=== PATIENT | male | born 1975 | race Caucasian/White ===

== ENCOUNTER → 2016-10-17 | Outpatient (CLI) | payer BC ==
[2016-10-17 10:29] LABS: CHLORIDE,CL 105 mmol/L (98-110); SODIUM,NA 142 mmol/L (136-146)
== END ==
LOC: MW.CHFP 09:17
PROVIDERS: ATTEND Student in an Organized Health Care Education/Training Program
DX: E78.00 Pure hypercholesterolemia, unspecified (principal); E78.1 Pure hyperglyceridemia; N52.9 Male erectile dysfunction, unspecified
CPT/HCPCS: 36415; 80053; 80061; 84402; 84403

== ENCOUNTER 2019-02-07 16:03 | Observation (INO) | payer BC ==
[2019-02-07] MEDS ORDERED: Acetaminophen 325 MG Tab PO PRN (16:13)
[2019-02-07] MEDS ORDERED: Acetaminophen/HYDROcodone 325-5 MG Tab PO PRN (16:13)
[2019-02-07] MEDS ORDERED: Sodium Chloride 0.9% 10 ML SDV IV PRN (16:13)
[2019-02-07] MEDS ORDERED: Sodium Chloride 0.9% 10 ML Syringe FLUSH PRN (16:13)
[2019-02-07] MEDS ORDERED: Ondansetron 4 MG/2 ML SDV IVPUSH PRN (16:13)
[2019-02-07] MEDS ORDERED: Ondansetron 4 MG Tab.DIS PO PRN (16:13)
[2019-02-07] MEDS ORDERED: Sodium Chloride 0.9% 2.5 ML Syringe FLUSH PRN (16:13)
[2019-02-07] MEDS ORDERED: Ibuprofen 800 MG Tab PO PRN (16:13)
[2019-02-07] MEDS ORDERED: Morphine 2 MG/ML Syringe IVPUSH PRN (16:13)
[2019-02-07] MEDS ORDERED: Albuterol 8 GM Inhaler INH PRN (16:16)
--- NOTE | 2019-02-07 16:20 | PCM.HP ---
H&P History of Present Illness - General Date of Service: 02/07/19 Admit Problem/Dx: Admission Diagnosis/Problem Admission Diagnosis/Problem Cellulitis - History of Present Illness Initial Comments - Free Text/Narative: 43 y/o male who was directly admitted from his PCP's clinic for right lower leg cellulitis. Patient states that he had cellulitis in the same area a few months ago and that resolved, however, this time it started on his ankle area and has spread to his entire foot and up his right ashraf area. Tender to palpation. No fevers. No trauma to leg. Has been taking clindamycin and doxycycline for acne. Had not seen a provider to his cellulitis until today. No nausea or vomiting. denies any rashes anywhere else on body. No known antibiotic allergies. [place] in town and likes to play video games. No smoking. Occasional alcohol. - Related Data Allergies/Adverse Reactions: Allergies Allergy/AdvReac Type Severity Reaction Status Date / Time cat dander Allergy Itching Verified 02/07/19 16:50 Home Medications: Home Meds Albuterol [Proair HFA] 2 puff INH Q4HR PRN 02/07/15 [History] Fluticasone/Salmeterol [Advair 250-50 Diskus] 1 puff INH BID PRN 02/07/15 [ History] Meloxicam [Mobic] 15 mg PO DAILY 02/07/15 [History] Simvastatin [Zocor] 10 mg PO BEDTIME 02/07/15 [History] Divalproex Sodium [Depakote] 1,500 mg PO DAILY 09/12/16 [History] Clindamycin Phosphate [Cleocin] 02/07/19 [History] Lisdexamfetamine Dimesylate [Vyvanse] 70 mg PO DAILY 02/07/19 [History] Past Medical History Cardiovascular History: Reports: High Cholesterol Respiratory History: Reports: Asthma Other Gastrointestinal History: inguinal hernia bilateral Other Musculoskeletal History: bulging discs Psychiatric History: Reports: ADHD, Bipolar Dermatologic History: Reports: Other (See Below) Other Dermatologic History: adult acne - Past Surgical History Other HEENT Surgeries/Procedures: eye surgery as a child Other Respiratory Surgeries/Procedures: chest tubes in past Social & Family History - Family History Family Medical History: Noncontributory - Caffeine Use Caffeine Use: Reports: Energy Drinks H&P Review of Systems - Review of Systems: Review Of Systems: ROS reveals no pertinent complaints other than HPI. Exam - Exam Exam: See Below - Exam General: Alert, Oriented, Cooperative Lungs: Clear to Auscultation, Normal Respiratory Effort. No: Crackles, Wheezing Cardiovascular: Regular Rate, Regular Rhythm GI/Abdominal Exam: Normal Bowel Sounds, Soft, Non-Tender, No Distention Extremities: Other (right lower leg cellulitis extending from right ashraf area to right foot. Foot is swollen and tender. No open ulcers.) Skin: Warm, Dry - Patient Data Result Diagrams: 02/07/19 16:30 02/07/19 16:30 Problem List Initiated/Reviewed/Updated: Yes Orders Last 24hrs: Active Orders 24 hr Category Date Time Status Patient Status [ADT] Routine ADT 02/07/19 16:14 Active Oxygen Therapy [RC] PRN Care 02/07/19 16:14 Active Up ad Fouzia [RC] ASDIRECTED Care 02/07/19 16:13 Active VTE/DVT Education [RC] PER UNIT ROUTINE Care 02/07/19 16:14 Active Vital Signs [RC] Q4H Care 02/07/19 16:14 Active Regular Diet [DIET] Diet 02/07/19 Breakfast Active CBC WITH AUTO DIFF [HEME] Urgent Lab 02/07/19 16:19 Ordered COMPREHENSIVE METABOLIC PN,CMP [CHEM] Urgent Lab 02/07/19 16:19 Ordered Acetaminophen [Tylenol] Med 02/07/19 16:13 Ordered 650 mg PO Q4H PRN Acetaminophen/HYDROcodone [[place] 325-5 MG] Med 02/07/19 16:13 Ordered 1 tab PO Q4H PRN Albuterol [Proventil HFA] Med 02/07/19 16:16 Ordered DOSE gm INH Q4HR PRN Divalproex Sodium [Depakote] Med 02/07/19 22:00 Ordered 1,500 mg PO TID Enoxaparin [Lovenox] Med 02/07/19 16:15 Ordered 40 mg SUBCUT Q24H Fluticasone/Salmeterol [Advair Diskus 250-50] Med 02/07/19 21:00 Ordered 1 puff INH BID Ibuprofen [Motrin] Med 02/07/19 16:13 Ordered 800 mg PO Q6H PRN Morphine Med 02/07/19 16:13 Ordered 2 mg IVPUSH Q2H PRN Ondansetron [Zofran ODT] Med 02/07/19 16:13 Ordered 4 mg PO Q4H PRN Ondansetron [Zofran] Med 02/07/19 16:13 Ordered 4 mg IVPUSH Q4H PRN Pharmacy to Dose - Vancomycin Med 02/07/19 16:30 Ordered 1 dose .XX ASDIRECTED Sodium Chloride 0.9% [Normal Saline] Med 02/07/19 16:13 Ordered 10 ml IV ASDIRECTED PRN Sodium Chloride 0.9% [Saline Flush] Med 02/07/19 16:13 Ordered 10 ml FLUSH ASDIRECTED PRN Sodium Chloride 0.9% [Saline Flush] Med 02/07/19 16:13 Ordered 2.5 ml FLUSH ASDIRECTED PRN Vancomycin 1.25 gm Med 02/07/19 16:30 Ordered Sodium Chloride 0.9% [Normal Saline] 250 ml IV Q12H Peripheral IV Insertion Adult [OM.PC] Routine Oth 02/07/19 16:13 Ordered Saline Lock Insert [OM.PC] Routine Oth 02/07/19 16:13 Ordered Resuscitation Status Routine Resus Stat 02/07/19 16:13 Ordered Medication Orders Acetaminophen (Tylenol) 650 mg PO Q4H PRN PRN Reason: Pain (Mild 1-3)/fever Hydrocodone Bitart/Acetaminophen ([place] 325-5 Mg) 1 tab PO Q4H PRN PRN Reason: Pain (moderate 4-6) Albuterol (Proventil Hfa) gm INH Q4HR PRN PRN Reason: Shortness of Breath Divalproex Sodium (Depakote) 1,500 mg PO TID [facility] Enoxaparin Sodium (Lovenox) 40 mg SUBCUT Q24H [facility] Vancomycin HCl 1.25 gm/ Sodium (Chloride) 250 mls @ 167 mls/hr IV Q12H [facility] Ibuprofen (Motrin) 800 mg PO Q6H PRN PRN Reason: Pain (mild 1-3) Morphine Sulfate (Morphine) 2 mg IVPUSH Q2H PRN PRN Reason: Pain (severe 7-10) Stop: 02/08/19 16:16 Ondansetron HCl (Zofran Odt) 4 mg PO Q4H PRN PRN Reason: nausea, able to take PO Ondansetron HCl (Zofran) 4 mg IVPUSH Q4H PRN PRN Reason: Nausea Fluticasone/Salmeterol (Advair Diskus 250-50) 1 puff INH BID [facility] Sodium Chloride (Saline Flush) 10 ml FLUSH ASDIRECTED PRN PRN Reason: Keep Vein Open Sodium Chloride (Saline Flush) 2.5 ml FLUSH ASDIRECTED PRN PRN Reason: Keep Vein Open Sodium Chloride (Normal Saline) 10 ml IV ASDIRECTED PRN PRN Reason: IV Use Vancomycin HCl (Pharmacy To Dose - Vancomycin) 1 dose .XX ASDIRECTED [facility] Assessment/Plan Comment:: A: 1. Right foot cellulitis P: 1. Will treat with IV vancomycin. Ordered CBC, CMP. Pain control. Will resume home medications. Dispo: 1-2 days
[2019-02-07 17:05] LABS: BLOOD UREA NITROGEN,BUN 23 mg/dL (7.0-18.0); CARBON DIOXIDE,CO2 23.6 mmol/L (21.0-32.0); CHLORIDE,CL 102 mmol/L (98-107); GLUCOSE RANDOM 135 mg/dL (74-106); SODIUM,NA 138 mmol/L (136-148)
[2019-02-07 17:36] LABS: HEMOGLOBIN A1C 5.5 % (4.5-6.2)
[2019-02-07] MEDS: Enoxaparin 40 MG/0.4 ML Syringe SUBCUT SCH (17:36)
[2019-02-07] MEDS: VANCOMYCIN/WATER FOR INJ (PEG) 1.5 GM in Premix Bag 1 BAG IV SCH (17:36)
[2019-02-07] MEDS: Fluticasone/Salmeterol 250-50 MCG Inhalation Powder 14/Diskus INH SCH (21:33)
[2019-02-07] MEDS: Divalproex Sodium Delayed-Release 500 MG Tab.CR PO SCH (21:51)
[2019-02-08] MEDS: Divalproex Sodium Delayed-Release 500 MG Tab.CR PO SCH ×2 (05:15→13:41)
[2019-02-08] MEDS: VANCOMYCIN/WATER FOR INJ (PEG) 1.5 GM in Premix Bag 1 BAG IV SCH ×2 (05:16→17:59)
[2019-02-08 08:05] LABS: BLOOD UREA NITROGEN,BUN 17 mg/dL (7.0-18.0); CARBON DIOXIDE,CO2 26.9 mmol/L (21.0-32.0); CHLORIDE,CL 107 mmol/L (98-107); GLUCOSE RANDOM 121 mg/dL (74-106); POTASSIUM,K 4.1 mmol/L (3.5-5.1); SODIUM,NA 143 mmol/L (136-148)
[2019-02-08] MEDS: Fluticasone/Salmeterol 250-50 MCG Inhalation Powder 14/Diskus INH SCH ×2 (09:05→21:30)
--- NOTE | 2019-02-08 09:27 | PCM.PN ---
- General Info Date of Service: 02/08/19 Subjective Update: 43-year-old male admitted for RLE cellulitis. He is on vancomycin. He reports that the swelling and redness his right leg look better but is still feeling some pain. He denied any fever, chills, nausea or vomiting. - Patient Data Vitals - Most Recent: Last Vital Signs Temp 97.3 F 02/08/19 09:00 Pulse 80 02/08/19 09:00 Resp 14 02/08/19 09:00 BP 124/59 L 02/08/19 09:00 Pulse Ox 98 02/08/19 09:00 Weight - Most Recent: 245 lb 11.2 oz I&O - Last 24 Hours: Intake & Output 02/07/19 02/08/19 02/08/19 22:59 06:59 14:59 Intake Total 500 Output Total 1300 Balance -800 Lab Results Last 24 Hours: Laboratory Results - last 24 hr 02/07/19 02/07/19 02/07/19 Range/Units 16:30 16:30 16:30 WBC 6.54 (4.0-11.0) K/uL RBC 4.43 L (4.50-5.90) M/uL Hgb 13.6 (13.0-17.0) g/dL Hct 39.4 (38.0-50.0) % MCV 88.9 (80.0-98.0) fL MCH 30.7 (27.0-32.0) pg MCHC 34.5 (31.0-37.0) g/dL RDW Std Deviation 39.4 (28.0-62.0) fl RDW Coeff of Jess 13 (11.0-15.0) % Plt Count 277 (150-400) K/uL MPV 9.80 (7.40-12.00) fL Neut % (Auto) 61.9 (48.0-80.0) % Lymph % (Auto) 21.7 (16.0-40.0) % [place] % (Auto) 10.1 (0.0-15.0) % Eos % (Auto) 5.8 (0.0-7.0) % Baso % (Auto) 0.5 (0.0-1.5) % Neut # (Auto) 4.1 (1.4-5.7) K/uL Lymph # (Auto) 1.4 (0.6-2.4) K/uL [place] # (Auto) 0.7 (0.0-0.8) K/uL Eos # (Auto) 0.4 (0.0-0.7) K/uL Baso # (Auto) 0.0 (0.0-0.1) K/uL Sodium 138 (136-148) mmol/L Potassium 4.0 (3.5-5.1) mmol/L Chloride 102 (98-107) mmol/L Carbon Dioxide 23.6 (21.0-32.0) mmol/L BUN 23 H (7.0-18.0) mg/dL Creatinine 1.2 (0.8-1.3) mg/dL Est Cr Clr Drug Dosing 86.22 mL/min Estimated GFR (MDRD) > 60.0 ml/min Glucose 135 H (74-106) mg/dL Hemoglobin A1c 5.5 (4.5-6.2) % Calcium 9.6 (8.5-10.1) mg/dL Total Bilirubin 0.3 (0.2-1.0) mg/dL AST 20 (15-37) IU/L ALT 41 (14-63) IU/L Alkaline Phosphatase 82 (46-116) U/L Total Protein 7.2 (6.4-8.2) g/dL Albumin 3.6 (3.4-5.0) g/dL Globulin 3.6 (2.6-4.0) g/dL Albumin/Globulin Ratio 1.0 (0.9-1.6) 02/08/19 02/08/19 Range/Units 07:42 07:42 WBC 5.70 (4.0-11.0) K/uL RBC 4.20 L (4.50-5.90) M/uL Hgb 12.8 L (13.0-17.0) g/dL Hct 38.3 (38.0-50.0) % MCV 91.2 (80.0-98.0) fL MCH 30.5 (27.0-32.0) pg MCHC 33.4 (31.0-37.0) g/dL RDW Std Deviation 40.6 (28.0-62.0) fl RDW Coeff of Jess 12 (11.0-15.0) % Plt Count 230 (150-400) K/uL MPV 9.80 (7.40-12.00) fL Neut % (Auto) 49.6 (48.0-80.0) % Lymph % (Auto) 28.6 (16.0-40.0) % [place] % (Auto) 13.9 (0.0-15.0) % Eos % (Auto) 7.4 H (0.0-7.0) % Baso % (Auto) 0.5 (0.0-1.5) % Neut # (Auto) 2.8 (1.4-5.7) K/uL Lymph # (Auto) 1.6 (0.6-2.4) K/uL [place] # (Auto) 0.8 (0.0-0.8) K/uL Eos # (Auto) 0.4 (0.0-0.7) K/uL Baso # (Auto) 0.0 (0.0-0.1) K/uL Sodium 143 (136-148) mmol/L Potassium 4.1 (3.5-5.1) mmol/L Chloride 107 (98-107) mmol/L Carbon Dioxide 26.9 (21.0-32.0) mmol/L BUN 17 (7.0-18.0) mg/dL Creatinine 0.9 (0.8-1.3) mg/dL Est Cr Clr Drug Dosing 114.96 mL/min Estimated GFR (MDRD) > 60.0 ml/min Glucose 121 H (74-106) mg/dL Hemoglobin A1c (4.5-6.2) % Calcium 8.8 (8.5-10.1) mg/dL Total Bilirubin (0.2-1.0) mg/dL AST (15-37) IU/L ALT (14-63) IU/L Alkaline Phosphatase (46-116) U/L Total Protein (6.4-8.2) g/dL Albumin (3.4-5.0) g/dL Globulin (2.6-4.0) g/dL Albumin/Globulin Ratio (0.9-1.6) Med Orders - Current: Current Medications Acetaminophen (Tylenol) 650 mg PO Q4H PRN PRN Reason: Pain (Mild 1-3)/fever Hydrocodone Bitart/Acetaminophen ([place] 325-5 Mg) 1 tab PO Q4H PRN PRN Reason: Pain (moderate 4-6) Last Admin: 02/08/19 09:09 Dose: 1 tab Albuterol (Ventolin Hfa) 0 gm INH Q4H PRN PRN Reason: Shortness of Breath Divalproex Sodium (Depakote) 1,500 mg PO TID [facility] Last Admin: 02/08/19 05:15 Dose: 1,500 mg Enoxaparin Sodium (Lovenox) 40 mg SUBCUT Q24H [facility] Last Admin: 02/07/19 17:36 Dose: 40 mg Vancomycin HCl 1.5 gm/ Premix 300 mls @ 200.408 mls/hr IV Q12H [facility] Last Admin: 02/08/19 05:16 Dose: 200.408 mls/hr Ibuprofen (Motrin) 800 mg PO Q6H PRN PRN Reason: Pain (mild 1-3) Morphine Sulfate (Morphine) 2 mg IVPUSH Q2H PRN PRN Reason: Pain (severe 7-10) Stop: 02/08/19 16:16 Ondansetron HCl (Zofran Odt) 4 mg PO Q4H PRN PRN Reason: nausea, able to take PO Ondansetron HCl (Zofran) 4 mg IVPUSH Q4H PRN PRN Reason: Nausea Fluticasone/Salmeterol (Advair Diskus 250-50) 1 puff INH BID [facility] Last Admin: 02/08/19 09:05 Dose: 1 puff Sodium Chloride (Saline Flush) 10 ml FLUSH ASDIRECTED PRN PRN Reason: Keep Vein Open Sodium Chloride (Saline Flush) 2.5 ml FLUSH ASDIRECTED PRN PRN Reason: Keep Vein Open Sodium Chloride (Normal Saline) 10 ml IV ASDIRECTED PRN PRN Reason: IV Use Vancomycin HCl (Pharmacy To Dose - Vancomycin) 1 dose .XX ASDIRECTED [facility] - Exam General: Alert, Oriented, Cooperative, No Acute Distress Lungs: Clear to Auscultation, Normal Respiratory Effort Cardiovascular: Regular Rate, Regular Rhythm Extremities: Other (RLE: edematous, area of erythema within marked pencil lines and appears to have receded. Non-tender to palpation. No calf tenderness.) - Problem List Review Problem List Initiated/Reviewed/Updated: Yes - Plan Plan:: Assessment: 1. RLE cellulitis. 2. Past medical history of hyperlipidemia, asthma, ADHD, bipolar personality disorder and acne. Plan: 1. Will continue vancomycin today. Erythema has improved, however, significant edema still present. Will continue to monitor for clinical improvement. Follow- up with Ultrasound. 2. For past medical history will continue with home medications.
--- NOTE | 2019-02-08 12:12 | US ---
INDICATION: Right lower extremity swelling. COMPARISON: None. TECHNIQUE: A compression venous ultrasound exam was performed of the right lower extremity using epperson-scale imaging, color Doppler and spectral Doppler analysis. FINDINGS: Sonographic imaging of the right lower extremity demonstrates normal compressibility and color Doppler venous blood flow within the common femoral vein, deep femoral vein, and the proximal greater saphenous vein. Within the thigh, the femoral vein is patent and compressible. At a lower level, the popliteal and posterior tibial veins also show normal compressibility and color Doppler venous blood flow. Limited imaging of the contralateral groin demonstrates a normal spectral waveform and color Doppler venous blood flow within the left common femoral vein. IMPRESSION: Normal venous ultrasound exam. No evidence of deep vein thrombosis within the right lower extremity. Dictated by Harini Perez MD @ Feb 08 2019 12:10PM Signed by Dr. Harini Perez @ Feb 08 2019 12:12PM
[2019-02-08] MEDS: Enoxaparin 40 MG/0.4 ML Syringe SUBCUT SCH (17:57)
[2019-02-09] MEDS: VANCOMYCIN/WATER FOR INJ (PEG) 1.5 GM in Premix Bag 1 BAG IV SCH (06:00)
[2019-02-09 06:15] LABS: BLOOD UREA NITROGEN,BUN 13 mg/dL (7.0-18.0); CHLORIDE,CL 109 mmol/L (98-107); GLUCOSE RANDOM 97 mg/dL (74-106); POTASSIUM,K 4.5 mmol/L (3.5-5.1); SODIUM,NA 143 mmol/L (136-148)
[2019-02-09 08:08] VITALS: BP 106/56; PULSE 72
[2019-02-09] MEDS: Fluticasone/Salmeterol 250-50 MCG Inhalation Powder 14/Diskus INH SCH (08:37)
[2019-02-09] MEDS ORDERED: Divalproex Sodium Delayed-Release 500 MG Tab.CR PO SCH (09:00)
--- NOTE | 2019-02-09 09:25 | PCM.DCSUM1 ---
<Khoa Snyder - Last Filed: 02/09/19 11:27> Discharge Summary - Hospital Course Free Text/Narrative:: 43 y/o male who was admitted directly from his PCP clinic for right foot cellulitis. Patient states that his right foot cellulitis had progressively getting worse over the past 1 week. painful to touch. No ulcers or discharge. No fevers. Had not been taking any antibiotics for it. During this hospitalization he received IV Vancomycin. His pain was controlled and cellulitis was regressing at time of discharge. He was discharged home on Bactrim DS PO BID for 7 days. Follow-up with PCP. - Discharge Data Discharge Date: 02/09/19 Discharge Disposition: Home, Self-Care 01 Condition: Good - Patient Instructions Diet: Regular Diet as Tolerated, Drink 8-10+ Glasses/Day Activity: Apply Ice, As Tolerated, Elevate Extremity Notify Provider of: Fever, Increased Pain, Swelling and Redness, Drainage, Nausea and/or Vomiting - Discharge Plan *PRESCRIPTION DRUG MONITORING PROGRAM REVIEWED*: Not Applicable *COPY OF PRESCRIPTION DRUG MONITORING REPORT IN PATIENT JUSTA: Not Applicable Prescriptions/Med Rec: Sulfamethoxazole/Trimethoprim [Bactrim Ds Tablet] 1 each PO BID 7 Days #14 tablet Home Medications: Home Meds Albuterol [Proair HFA] 2 puff INH Q4HR PRN 02/07/15 [History] Fluticasone/Salmeterol [Advair 250-50] 1 puff INH BID PRN 02/07/15 [History] Meloxicam [Mobic] 15 mg PO DAILY 02/07/15 [History] Simvastatin [Zocor] 10 mg PO BEDTIME 02/07/15 [History] Divalproex Sodium [Depakote] 1,500 mg PO DAILY 09/12/16 [History] Clindamycin Phosphate [Cleocin] 02/07/19 [History] Lisdexamfetamine Dimesylate [Vyvanse] 70 mg PO DAILY 02/07/19 [History] Sulfamethoxazole/Trimethoprim [Bactrim Ds Tablet] 1 each PO BID 7 Days #14 tablet 02/09/19 [Rx] Patient Handouts: Cellulitis, Adult, [id number], Sulfamethoxazole; Trimethoprim, [id number] tablets Referrals: [facility] [Outside] Gael Howell MD [Primary Care Provider] - Kendrick Marion MD [Ordering Only Provider] - 02/17/19 12:30 pm (Arrive 15 minutes early to check-in. If you are late they will not see you. The appointment was not able to be made with Dr. Howell because he is out of the office this week. ) - Discharge Summary/Plan Comment DC Time >30 min.: No - Patient Data Vitals - Most Recent: Last Vital Signs Temp 36.7 C 02/09/19 07:46 Pulse 72 02/09/19 07:46 Resp 14 02/09/19 07:46 BP 106/56 L 02/09/19 07:46 Pulse Ox 98 02/09/19 07:46 Weight - Most Recent: 111.448 kg I&O - Last 24 hours: Intake & Output 02/08/19 02/09/19 02/09/19 22:59 06:59 14:59 Intake Total 1080 1200 Output Total 550 800 Balance 530 400 Lab Results - Last 24 hrs: Laboratory Results - last 24 hr 02/09/19 02/09/19 02/09/19 Range/Units 05:54 05:54 05:54 WBC 5.40 (4.0-11.0) K/uL RBC 4.33 L (4.50-5.90) M/uL Hgb 13.1 (13.0-17.0) g/dL Hct 40.1 (38.0-50.0) % MCV 92.6 (80.0-98.0) fL MCH 30.3 (27.0-32.0) pg MCHC 32.7 (31.0-37.0) g/dL RDW Std Deviation 41.8 (28.0-62.0) fl RDW Coeff of Jess 13 (11.0-15.0) % Plt Count 231 (150-400) K/uL MPV 9.40 (7.40-12.00) fL Neut % (Auto) 49.3 (48.0-80.0) % Lymph % (Auto) 30.6 (16.0-40.0) % [place] % (Auto) 12.0 (0.0-15.0) % Eos % (Auto) 7.4 H (0.0-7.0) % Baso % (Auto) 0.7 (0.0-1.5) % Neut # (Auto) 2.7 (1.4-5.7) K/uL Lymph # (Auto) 1.7 (0.6-2.4) K/uL [place] # (Auto) 0.7 (0.0-0.8) K/uL Eos # (Auto) 0.4 (0.0-0.7) K/uL Baso # (Auto) 0.0 (0.0-0.1) K/uL Sodium 143 (136-148) mmol/L Potassium 4.5 (3.5-5.1) mmol/L Chloride 109 H (98-107) mmol/L Carbon Dioxide 26.0 (21.0-32.0) mmol/L BUN 13 (7.0-18.0) mg/dL Creatinine 0.8 (0.8-1.3) mg/dL Est Cr Clr Drug Dosing 129.33 mL/min Estimated GFR (MDRD) > 60.0 ml/min Glucose 97 (74-106) mg/dL Calcium 8.9 (8.5-10.1) mg/dL Vancomycin Trough 7.1 (5.0-10.0) ug/mL Med Orders - Current: Current Medications Acetaminophen (Tylenol) 650 mg PO Q4H PRN PRN Reason: Pain (Mild 1-3)/fever Hydrocodone Bitart/Acetaminophen ([place] 325-5 Mg) 1 tab PO Q4H PRN PRN Reason: Pain (moderate 4-6) Last Admin: 02/08/19 09:09 Dose: 1 tab Albuterol (Ventolin Hfa) 0 gm INH Q4H PRN PRN Reason: Shortness of Breath Divalproex Sodium (Depakote) 1,500 mg PO DAILY [facility] Last Admin: 02/09/19 08:35 Dose: 1,500 mg Enoxaparin Sodium (Lovenox) 40 mg SUBCUT Q24H [facility] Last Admin: 02/08/19 17:57 Dose: 40 mg Vancomycin HCl 1.5 gm/ Premix 300 mls @ 200.408 mls/hr IV Q8H [facility] Ibuprofen (Motrin) 800 mg PO Q6H PRN PRN Reason: Pain (mild 1-3) Last Admin: 02/08/19 18:54 Dose: 800 mg Ondansetron HCl (Zofran Odt) 4 mg PO Q4H PRN PRN Reason: nausea, able to take PO Ondansetron HCl (Zofran) 4 mg IVPUSH Q4H PRN PRN Reason: Nausea Fluticasone/Salmeterol (Advair Diskus 250-50) 1 puff INH BID [facility] Last Admin: 02/09/19 08:37 Dose: 1 puff Sodium Chloride (Saline Flush) 10 ml FLUSH ASDIRECTED PRN PRN Reason: Keep Vein Open Sodium Chloride (Saline Flush) 2.5 ml FLUSH ASDIRECTED PRN PRN Reason: Keep Vein Open Sodium Chloride (Normal Saline) 10 ml IV ASDIRECTED PRN PRN Reason: IV Use Vancomycin HCl (Pharmacy To Dose - Vancomycin) 1 dose .XX ASDIRECTED [facility] Discontinued Medications Divalproex Sodium (Depakote) 1,500 mg PO TID [facility] Last Admin: 02/08/19 13:41 Dose: Not Given Vancomycin HCl 1.5 gm/ Premix 300 mls @ 200.408 mls/hr IV Q12H [facility] Stop: 02/09/19 08:00 Last Admin: 02/09/19 06:00 Dose: 200.408 mls/hr Morphine Sulfate (Morphine) 2 mg IVPUSH Q2H PRN PRN Reason: Pain (severe 7-10) Stop: 02/08/19 16:16 Last Admin: 02/08/19 13:42 Dose: 2 mg <Carlin Rutledge J - Last Filed: 02/10/19 19:43> - Patient Data Vitals - Most Recent: Last Vital Signs Temp 36.7 C 02/09/19 07:46 Pulse 72 02/09/19 07:46 Resp 14 02/09/19 07:46 BP 106/56 L 02/09/19 07:46 Pulse Ox 98 02/09/19 07:46 Med Orders - Current: Current Medications Discontinued Medications Acetaminophen (Tylenol) 650 mg PO Q4H PRN PRN Reason: Pain (Mild 1-3)/fever Hydrocodone Bitart/Acetaminophen ([place] 325-5 Mg) 1 tab PO Q4H PRN PRN Reason: Pain (moderate 4-6) Last Admin: 02/08/19 09:09 Dose: 1 tab Albuterol (Ventolin Hfa) 0 gm INH Q4H PRN PRN Reason: Shortness of Breath Divalproex Sodium (Depakote) 1,500 mg PO TID [facility] Last Admin: 02/08/19 13:41 Dose: Not Given Divalproex Sodium (Depakote) 1,500 mg PO DAILY [facility] Last Admin: 02/09/19 08:35 Dose: 1,500 mg Enoxaparin Sodium (Lovenox) 40 mg SUBCUT Q24H [facility] Last Admin: 02/08/19 17:57 Dose: 40 mg Vancomycin HCl 1.5 gm/ Premix 300 mls @ 200.408 mls/hr IV Q12H [facility] Stop: 02/09/19 08:00 Last Admin: 02/09/19 06:00 Dose: 200.408 mls/hr Vancomycin HCl 1.5 gm/ Premix 300 mls @ 200.408 mls/hr IV Q8H [facility] Ibuprofen (Motrin) 800 mg PO Q6H PRN PRN Reason: Pain (mild 1-3) Last Admin: 02/08/19 18:54 Dose: 800 mg Morphine Sulfate (Morphine) 2 mg IVPUSH Q2H PRN PRN Reason: Pain (severe 7-10) Stop: 02/08/19 16:16 Last Admin: 02/08/19 13:42 Dose: 2 mg Ondansetron HCl (Zofran Odt) 4 mg PO Q4H PRN PRN Reason: nausea, able to take PO Ondansetron HCl (Zofran) 4 mg IVPUSH Q4H PRN PRN Reason: Nausea Fluticasone/Salmeterol (Advair Diskus 250-50) 1 puff INH BID [facility] Last Admin: 02/09/19 08:37 Dose: 1 puff Sodium Chloride (Saline Flush) 10 ml FLUSH ASDIRECTED PRN PRN Reason: Keep Vein Open Sodium Chloride (Saline Flush) 2.5 ml FLUSH ASDIRECTED PRN PRN Reason: Keep Vein Open Sodium Chloride (Normal Saline) 10 ml IV ASDIRECTED PRN PRN Reason: IV Use Vancomycin HCl (Pharmacy To Dose - Vancomycin) 1 dose .XX ASDIRECTED [facility] - Free Text/Narrative Note: I have evaluated the patient. I have discussed findings and treatment plan with resident. I agree with the assessment and plan outlined in the following note.
[2019-02-09] MEDS ORDERED: VANCOMYCIN/WATER FOR INJ (PEG) 1.5 GM in Premix Bag 1 BAG IV SCH (14:00)
== END 2019-02-09 10:25 | disposition home or self-care (01) ==
LOC: MW.MS 16:03
PROVIDERS: ADMIT Internal Medicine; ATTEND Internal Medicine
DX: L03.115 Cellulitis of right lower limb (principal); E78.00 Pure hypercholesterolemia, unspecified; J45.909 Unspecified asthma, uncomplicated; F90.9 Attention-deficit hyperactivity disorder, unspecified type; F31.9 Bipolar disorder, unspecified; L70.9 Acne, unspecified; Z79.899 Other long term (current) drug therapy; Z79.1 Long term (current) use of non-steroidal anti-inflammatories (NSAID); Z79.2 Long term (current) use of antibiotics; Z91.048 Other nonmedicinal substance allergy status
CPT/HCPCS: 36415; 80048; 80053; 80202; 83036; 85025; 93971; 96365; 96366; 96372; 96375; 96376; A9270; G0378; G0379; J1650; J2270; J3370

== ENCOUNTER 2020-07-29 22:43 | Observation (INO) | payer BC ==
[2020-07-29] MEDS ORDERED: EPINEPHrine 1 MG/ML SDV IM ONE ×2 (22:47→23:03)
[2020-07-29] MEDS ORDERED: Famotidine 20 MG/2 ML SDV IVPUSH ONE (22:48)
[2020-07-29] MEDS ORDERED: Ondansetron 4 MG/2 ML SDV IVPUSH ONE (22:48)
[2020-07-29] MEDS ORDERED: methylPREDNISolone Sodium Succinate 125 MG/2 ML SDV IVPUSH ONE (22:48)
[2020-07-29] MEDS ORDERED: EPINEPHrine 1 MG/1 ML Amp IVPUSH ONE (22:54)
[2020-07-29] MEDS ORDERED: Albuterol/Ipratropium 3.0-0.5 MG/3 ML Neb Soln NEB ONE (23:00)
[2020-07-29] MEDS ORDERED: Sodium Chloride 0.9% 1,000 ML IV SCH ×2 (23:00→23:30)
[2020-07-29] MEDS ORDERED: EPINEPHrine 1 MG/ML SDV ONE (23:01)
[2020-07-29] MEDS ORDERED: Albuterol/Ipratropium 3.0-0.5 MG/3 ML Neb Soln ONE ×2 (23:03→23:09)
[2020-07-29] MEDS ORDERED: Naloxone 0.4 MG/ML SDV IVPUSH ONE (23:11)
[2020-07-29 23:25] LABS: CARBON DIOXIDE,CO2 26.8 mmol/L (21.0-32.0); POTASSIUM,K 4.1 mmol/L (3.5-5.1)
[2020-07-29] MEDS ORDERED: EPINEPHrine 1 MG in Dextrose 5% in Water 99 ML IV SCH ×2 (23:30)
[2020-07-29] MEDS ORDERED: EPINEPHRINE IV SCH ×2 (23:51)
[2020-07-29] MEDS ORDERED: DEXTROSE 5% IV SCH ×2 (23:51)
[2020-07-29] MEDS ORDERED: WATER IV SCH ×2 (23:51)
[2020-07-30] MEDS ORDERED: DEXTROSE 5% IV SCH ×2 (00:15)
[2020-07-30] MEDS ORDERED: EPINEPHRINE IV SCH ×2 (00:15)
[2020-07-30] MEDS ORDERED: WATER IV SCH ×2 (00:15)
--- NOTE | 2020-07-30 03:04 | EDM.PDOC ---
ED HPI GENERAL MEDICAL PROBLEM - General Chief Complaint: Allergic Reaction Stated Complaint: ALLERGIC REACTION Time Seen by Provider: 07/29/20 22:49 - History of Present Illness INITIAL COMMENTS - FREE TEXT/NARRATIVE: CHIEF COMPLAINT(S): Allergic reaction HISTORY OF PRESENT ILLNESS: This is a 45-year-old man with a past medical history of asthma who presents to the emergency department via EMS with a chief complaint of allergic reaction. EMS stated that upon arrival the patient was hypotensive and had an urticarial rash throughout his body. They state that other than that he was okay in route. Per this happened after he ate kiwi and the symptoms started approximately 1 hour after that and she gave him Benadryl 50 mg by mouth.. The patient states that he has not had an allergic reaction to kiwi before. He states that he is currently experiencing itchiness but denies any shortness of breath, throat swelling, nausea, vomiting, or diarrhea. REVIEW OF SYSTEMS: Constitutional: Denies fever, chills. Eyes: Denies eye pain Ears, Nose, Mouth, & Throat: Denies earache Cardiovascular: Denies chest pain Respiratory: Denies shortness of breath Gastrointestinal: Denies Nausea, vomiting, diarrhea, hematochezia. Genitourinary: Denies hematuria Skin: Positive for itchiness and rash Neurological: Denies blurred vision Psychiatric: Denies depression PAST MEDICAL HISTORY: As per history of present illness and as reviewed below otherwise noncontributory. SURGICAL HISTORY: As per history of present illness and as reviewed below otherwise noncontributory. SOCIAL HISTORY: As per history of present illness and as reviewed below otherwise noncontributory. FAMILY HISTORY: As per history of present illness and as reviewed below otherwise noncontributory. EXAMINATION OF ORGAN SYSTEMS/BODY AREAS: VITALS: Blood pressure was 89/50, heart rate 141, respiratory rate 22 with an oxygen saturation of 91% on room air. Temperature 35.7. GENERAL: Young man who is pale but in no acute distress speaking in full sen tences. HEAD: Normocephalic, atraumatic. EYES: EOMs intact. PERRL. ENT. External ears WNL. Nares patent. Oropharynx is clear with no erythema or exudate. No uvular or tongue swelling. No stridor is present. NECK: Supple, no masses. Trachea is midline. LUNGS: No tachypnea or intercostal retractions. Diminished but clear to auscultation bilaterally, no wheezing, no rales, no stridor, no rhonchi. CARDIOVASCULAR: Regular rate and rhythm with S1-S2. No murmur, rubs or gallops. No edema. No JVD. ABDOMEN: Soft, non-distended, non-tender. Bowel sounds present in all 4 quadrants. No rebound tenderness, guarding, or peritoneal signs. MUSCULOSKELETAL: No deformity. Patient is moving all 4 limbs spontaneously. NEUROLOGICAL: Alert and oriented x 3. No focal neurological deficits noted. SKIN: Diffuse urticarial rash throughout the patient's body. MEDICAL DECISION MAKING AND COURSE IN THE ED WITH INTERPRETATION/REVIEW OF DIAGNOSTIC STUDIES: This is a 45-year-old man with a past medical history of asthma who presents to the emergency department after an allergic reaction to kiwi who is hypotensive and hypoxic. Immediately upon entering the room the patient was disrobed, placed on continuous cardiac monitoring, and IV access was established by nursing. Patient is able to speak thus displaying a patent airway, breath sounds are equal bilaterally, and patient has palpable pulses in all 4 extremities. Given the patient was already given Benadryl we will not administer Benadryl. On initial vital signs the patient was tachycardic and hypoxic. We will provide the patient 0.5 mg of IM epinephrine, 125 mg of Solu- Medrol, 40 mg of IV famotidine, and 4 mg of IV Zofran. We also provided the patient with 1 L of normal saline bolus. We will reevaluate after this administration. Given the hypoxia we also provide the patient with 5 mg of albuterol via nebulized treatment. After initial epinephrine dose, the patient continued to remain hypotensive. Therefore we administered an additional dose of 0.5 mg of IM epinephrine and the patient was becoming more somnolent. At this time we also started the patient on additional 1 L normal saline bolus. I called for IV drip epinephrine which had to be made by pharmacy. We placed the pads on the patient given that we will be administering him epinephrine. On the monitor the patient was sinus tachycardia. After second dose of IM epinephrine the patient's heart rate actually improved, his blood pressure improved, and after albuterol administration the patient did have bilateral wheezing on exam however it had good air entry and was able to speak in full sentences with improved oxygenation. At this time we will hold off on IV epinephrine drip and observe the patient. Will obtain basic labs, EKG. Will obtain a Covid swab. Laboratory: CBC reveals a leukocytosis with neutrophilic predominance likely secondary to demargination from acute stress response. The patient has an increased hemoglobin of 18.2 and hematocrit of 55.1 otherwise unremarkable. BMP reveals elevated creatinine of 1.5. This is increased from prior at 0.8. Covid is negative. Twelve-lead EKG interpreted by myself. Normal sinus rhythm at a rate of 82 beats per minute. Normal axis. CA interval is 169 ms. QRS duration is [address] segments are normal without elevations or depressions. No Q waves present. Hypertrophy not noted. No changes from prior EKG dated 02/07/2018. Potation: Normal sinus rhythm. After period of observation the patient did remain stable. I did discuss with patient at this time that given that we needed additional doses of epinephrine and that he was hypotensive on arrival I had like to admit him for observation. He was amenable to this plan. I did update the . I contacted Dr. Rutledge who accepted the patient for admission. DISPOSITION: The patient was admitted to the hospital in stable condition PROCEDURES: Cardiac monitoring interpretation, pulse oximetry interpretation CONDITION: Fair FINAL IMPRESSION(S)/DIAGNOSES: 1. Acute anaphylaxis secondary to kiwi 2. Acute kidney injury Critical Care Procedure Note Authorized and performed by: Lazaro Shah M.D. Critical Care Time: 34 minutes Due to a high probability of clinically significant, life threatening deterioration, the patient required my highest level of preparedness to intervene emergently and I personally spent this critical care time directly and personally managing the patient. This critical care time included obtaining a history, examining the patient, pulse oximetry; ordering and review of studies; arranging urgent treatment with development of a management plan; evaluation of a patients reponse to treatment; frequent assessment; and discussions with other providers. This critical care time was performed to assess and manage the high probability of imminent, life threatening deterioration that could result in multiorgan failure. It was exclusive of separate billable procedures and treating other patients. Please see MDM section and rest of the note for further information on patient assessment and treatment. Treatments PERSONAL CHEF: Reports: IV/IO Other Treatments PERSONAL CHEF: 500 ml bolus per ems - Related Data Allergies Allergy/AdvReac Type Severity Reaction Status Date / Time kiwi Allergy Severe Anaphylactic Verified 07/30/20 02:32 Shock cat dander Allergy Itching Verified 07/30/20 02:32 Home Meds: Home Meds Albuterol [Proair HFA] 2 puff INH Q4HR PRN 02/07/15 [History] Fluticasone/Salmeterol [Advair 250-50] 1 puff INH BID PRN 02/07/15 [History] Meloxicam [Mobic] 15 mg PO DAILY 02/07/15 [History] Simvastatin [Zocor] 10 mg PO BEDTIME 02/07/15 [History] Divalproex Sodium [Depakote] 1,500 mg PO BEDTIME 09/12/16 [History] Lisdexamfetamine Dimesylate [Vyvanse] 70 mg PO DAILY 02/07/19 [History] Past Medical History Cardiovascular History: Reports: High Cholesterol Respiratory History: Reports: Asthma Other Gastrointestinal History: inguinal hernia bilateral Other Musculoskeletal History: bulging discs Psychiatric History: Reports: ADHD, Bipolar Dermatologic History: Reports: Other (See Below) Other Dermatologic History: adult acne - Infectious Disease History Infectious Disease History: Reports: Chicken Pox - Past Surgical History Other HEENT Surgeries/Procedures: eye surgery as a child Other Respiratory Surgeries/Procedures: chest tubes in past Social & Family History - Family History Family Medical History: No Pertinent Family History - Tobacco Use Tobacco Use Status *Q: Never Tobacco User Second Hand Smoke Exposure: No - Caffeine Use Caffeine Use: Reports: Energy Drinks - Recreational Drug Use Recreational Drug Use: No ED ROS ALLERGIC REACTION - Review of Systems Review Of Systems: See Below ED EXAM GENERAL NO PERIP PULSE - Physical Exam Exam: See Below Course - Vital Signs Last Recorded V/S: Last Vital Signs Temp 37.0 C 07/30/20 01:54 Pulse 100 07/30/20 01:54 Resp 19 07/30/20 01:54 BP 161/91 H 07/30/20 01:54 Pulse Ox 94 L 07/30/20 01:54 - Orders/Labs/Meds Orders: Active Orders 24 hr Category Date Time Status Cardiac Monitoring [RC] . DIRECTED Care 07/29/20 22:48 Active EKG Documentation Completion [RC] STAT Care 07/29/20 22:49 Active Pulse Oximetry [RC] ASDIRECTED Care 07/29/20 22:48 Active RT Aerosol Therapy [RC] ASDIRECTED Care 07/29/20 23:21 Active EPINEPHrine [Adrenalin] 10 mg Med 07/30/20 00:15 Active Dextrose 5% in Water 90 ml IV TITRATE Sodium Chloride 0.9% [Normal Saline] 1,000 ml Med 07/29/20 23:00 Active IV ASDIRECTED Sodium Chloride 0.9% [Normal Saline] 1,000 ml Med 07/29/20 23:30 Active IV ASDIRECTED Medication Orders Sodium Chloride (Normal Saline) 1,000 mls @ 999 mls/hr IV ASDIRECTED KRISS Last Admin: 07/29/20 23:26 Dose: 999 mls/hr Documented by: DALILA Sodium Chloride (Normal Saline) 1,000 mls @ 3,000 mls/hr IV ASDIRECTED KRISS Last Admin: 07/29/20 23:05 Dose: 3,000 mls/hr Documented by: DALILA Epinephrine HCl 10 mg/ (Dextrose/Water) 100 mls @ 6.532 mls/hr IV TITRATE KRISS; Protocol Labs: Laboratory Tests 07/29/20 07/29/20 07/29/20 Range/Units 23:00 23:00 23:14 WBC 11.46 H (4.0-11.0) K/uL RBC 5.95 H (4.50-5.90) M/uL Hgb 18.2 H (13.0-17.0) g/dL Hct 55.1 H (38.0-50.0) % MCV 92.6 (80.0-98.0) fL MCH 30.6 (27.0-32.0) pg MCHC 33.0 (31.0-37.0) g/dL RDW Std Deviation 44.0 (28.0-62.0) fl RDW Coeff of Jess 13 (11.0-15.0) % Plt Count 309 (150-400) K/uL MPV 10.60 (7.40-12.00) fL Neut % (Auto) 88.2 H (48.0-80.0) % Lymph % (Auto) 10.5 L (16.0-40.0) % Wetzel % (Auto) 1.1 (0.0-15.0) % Eos % (Auto) 0.2 (0.0-7.0) % Baso % (Auto) 0.0 (0.0-1.5) % Neut # (Auto) 10.1 H (1.4-5.7) K/uL Lymph # (Auto) 1.2 (0.6-2.4) K/uL Wetzel # (Auto) 0.1 (0.0-0.8) K/uL Eos # (Auto) 0.0 (0.0-0.7) K/uL Baso # (Auto) 0.0 (0.0-0.1) K/uL Nucleated RBC % 0.0 /100WBC Nucleated RBCs # 0 K/uL Sodium 141 (136-148) mmol/L Potassium 4.1 (3.5-5.1) mmol/L Chloride 104 (98-107) mmol/L Carbon Dioxide 26.8 (21.0-32.0) mmol/L BUN 16 (7.0-18.0) mg/dL Creatinine 1.5 H (0.8-1.3) mg/dL Est Cr Clr Drug Dosing 67.54 mL/min Estimated GFR (MDRD) 50.4 ml/min Glucose 183 H (74-106) mg/dL POC Glucose 94 (60-110) mg/dL Calcium 9.4 (8.5-10.1) mg/dL SARS-CoV-2 RNA (LENCHO) (NEGATIVE) 07/29/20 Range/Units 23:34 WBC (4.0-11.0) K/uL RBC (4.50-5.90) M/uL Hgb (13.0-17.0) g/dL Hct (38.0-50.0) % MCV (80.0-98.0) fL MCH (27.0-32.0) pg MCHC (31.0-37.0) g/dL RDW Std Deviation (28.0-62.0) fl RDW Coeff of Jess (11.0-15.0) % Plt Count (150-400) K/uL MPV (7.40-12.00) fL Neut % (Auto) (48.0-80.0) % Lymph % (Auto) (16.0-40.0) % Wetzel % (Auto) (0.0-15.0) % Eos % (Auto) (0.0-7.0) % Baso % (Auto) (0.0-1.5) % Neut # (Auto) (1.4-5.7) K/uL Lymph # (Auto) (0.6-2.4) K/uL Wetzel # (Auto) (0.0-0.8) K/uL Eos # (Auto) (0.0-0.7) K/uL Baso # (Auto) (0.0-0.1) K/uL Nucleated RBC % /100WBC Nucleated RBCs # K/uL Sodium (136-148) mmol/L Potassium (3.5-5.1) mmol/L Chloride (98-107) mmol/L Carbon Dioxide (21.0-32.0) mmol/L BUN (7.0-18.0) mg/dL Creatinine (0.8-1.3) mg/dL Est Cr Clr Drug Dosing mL/min Estimated GFR (MDRD) ml/min Glucose (74-106) mg/dL POC Glucose (60-110) mg/dL Calcium (8.5-10.1) mg/dL SARS-CoV-2 RNA (LENCHO) NEGATIVE (NEGATIVE) Meds: Medications Generic Name Dose Route Start Last Admin Trade Name Freq PRN Reason Stop Dose Admin Sodium Chloride 1,000 mls @ 999 mls/hr 07/29/20 23:00 07/29/20 23:26 Normal Saline IV 999 mls/hr ASDIRECTED KRISS Administration Sodium Chloride 1,000 mls @ 3,000 mls/hr 07/29/20 23:30 07/29/20 23:05 Normal Saline IV 3,000 mls/hr ASDIRECTED KRISS Administration Epinephrine HCl 10 mg/ 100 mls @ 6.532 mls/hr 07/30/20 00:15 Dextrose/Water IV TITRATE KRISS Protocol 0.1 MCG/KG/MIN Discontinued Medications Generic Name Dose Route Start Last Admin Trade Name Freq PRN Reason Stop Dose Admin Albuterol/Ipratropium Confirm 07/29/20 23:03 07/29/20 23:20 Duoneb 3.0-0.5 Mg/3 Ml Administered 07/29/20 23:04 Not Given Dose 3 ml .ROUTE .STK-MED ONE Albuterol/Ipratropium Confirm 07/29/20 23:09 07/29/20 23:20 Duoneb 3.0-0.5 Mg/3 Ml Administered 07/29/20 23:10 Not Given Dose 3 ml .ROUTE .STK-MED ONE Albuterol/Ipratropium 6 ml 07/29/20 23:00 07/29/20 23:21 Duoneb 3.0-0.5 Mg/3 Ml NEB 07/29/20 23:01 6 ml ONETIME ONE Administration Epinephrine HCl 0.5 mg 07/29/20 22:47 07/29/20 22:50 Adrenalin IM 07/29/20 22:48 0.5 mg ONETIME ONE Administration Epinephrine HCl Confirm 07/29/20 23:01 07/29/20 23:16 Adrenalin Administered 07/29/20 23:02 Not Given Dose 1 mg .ROUTE .STK-MED ONE Epinephrine HCl 0.5 mg 07/29/20 23:03 07/29/20 23:03 Adrenalin IM 07/29/20 23:04 0.5 mg ONETIME ONE Administration Famotidine 40 mg 07/29/20 22:48 07/29/20 23:19 Pepcid IVPUSH 07/29/20 22:49 40 mg ONETIME ONE Administration Norepinephrine Bitartrate Confirm 07/29/20 23:02 07/29/20 23:17 Norepinephr-0.9% Nacl 4 Mg/250 Administered 07/29/20 23:03 Not Given Dose 4 mg in 250 mls @ as directed IV .STK-MED ONE Methylprednisolone Sodium Succinate 125 mg 07/29/20 22:48 07/29/20 23:19 Solu-Medrol IVPUSH 07/29/20 22:49 125 mg ONETIME ONE Administration Naloxone HCl 0.4 mg 07/29/20 23:11 07/29/20 23:28 Narcan IVPUSH 07/29/20 23:12 0.4 mg ONETIME ONE Administration Ondansetron HCl 4 mg 07/29/20 22:48 07/29/20 23:19 Zofran IVPUSH 07/29/20 22:49 4 mg ONETIME ONE Administration Departure - Departure Time of Disposition: 00:51 Disposition: Refer to Observation Clinical Impression: Anaphylaxis Qualifiers: Encounter type: initial encounter Qualified Code(s): T78.2XXA - Anaphylactic shock, unspecified, initial encounter - Discharge Information Sepsis Event Note (ED) - Evaluation Sepsis Screening Result: No Definite Risk - Focused Exam Vital Signs: Vital Signs Temp Pulse Resp BP Pulse Ox 07/30/20 00:32 85 16 123/72 98 07/29/20 23:27 87 18 132/87 98 07/29/20 22:50 35.7 C L 141 H 22 H 89/50 L 91 L - My Orders Last 24 Hours: My Active Orders 07/29/20 22:48 Cardiac Monitoring [RC] . DIRECTED Pulse Oximetry [RC] ASDIRECTED 07/29/20 22:49 EKG Documentation Completion [RC] STAT 07/29/20 23:00 Sodium Chloride 0.9% [Normal Saline] 1,000 ml IV ASDIRECTED 07/29/20 23:21 RT Aerosol Therapy [RC] ASDIRECTED 07/29/20 23:30 Sodium Chloride 0.9% [Normal Saline] 1,000 ml IV ASDIRECTED 07/30/20 00:15 EPINEPHrine [Adrenalin] 10 mg Dextrose 5% in Water 90 ml IV TITRATE - Assessment/Plan Last 24 Hours: My Active Orders 07/29/20 22:48 Cardiac Monitoring [RC] . DIRECTED Pulse Oximetry [RC] ASDIRECTED 07/29/20 22:49 EKG Documentation Completion [RC] STAT 07/29/20 23:00 Sodium Chloride 0.9% [Normal Saline] 1,000 ml IV ASDIRECTED 07/29/20 23:21 RT Aerosol Therapy [RC] ASDIRECTED 07/29/20 23:30 Sodium Chloride 0.9% [Normal Saline] 1,000 ml IV ASDIRECTED 07/30/20 00:15 EPINEPHrine [Adrenalin] 10 mg Dextrose 5% in Water 90 ml IV TITRATE
[2020-07-30 07:02] LABS: BLOOD UREA NITROGEN,BUN 14 mg/dL (7.0-18.0); CARBON DIOXIDE,CO2 24.9 mmol/L (21.0-32.0); CHLORIDE,CL 108 mmol/L (98-107); GLUCOSE RANDOM 140 mg/dL (74-106); POTASSIUM,K 5.5 mmol/L (3.5-5.1); SODIUM,NA 140 mmol/L (136-148)
--- NOTE | 2020-07-30 08:05 | PCM.HP.2 ---
H&P History of Present Illness - General Date of Service: 07/30/20 Admit Problem/Dx: Admission Diagnosis/Problem Admission Diagnosis/Problem Anaphylaxis Source of Information: Patient - History of Present Illness Initial Comments - Free Text/Narative: Patient is a 45-year-old male significant past medical history of bipolar disorder on Depakote, ADHD presenting yesterday to the ED after experiencing an anaphylactic reaction after consuming a kiwi. Patient around 8 PM last night consumed 1 nightly thereafter with significant problems breathing, dizziness and a generalized pruritic rash. Patient was brought to the ED by his and given a 50 mg tab of Benadryl prior to arrival to the ED. Patient has never experienced an allergic reaction and or anaphylaxis in the past. ED course patient was found to be hypotensive with a blood pressure of 89/50 with a heart rate of 141. Patient also had an oxygen saturation of 91%. Provided immediately on arrival 0.5 mg of IM epinephrine, 125 mg of Solu-Medrol, 40 mg of IV famotidine and 4 mg of IV Zofran. Patient was also given a 1 L saline. Patient remained hypotensive and required additional 0.5 mg of IM epinephrine ; patient responded well to this. EKG: NSR at [address] elevations/depressions Admitted overnight for observation Bedside: Patient at bedside does not have any acute complaints. States all his symptoms had resolved and is able to breathe and swallow without any problems. Denies any pruritic lesions or feeling dizzy. Patient is requesting to be discharged. - Related Data Allergies/Adverse Reactions: Allergies Allergy/AdvReac Type Severity Reaction Status Date / Time kiwi Allergy Severe Anaphylactic Verified 07/30/20 02:32 Shock cat dander Allergy Itching Verified 07/30/20 02:32 Home Medications: Home Meds Albuterol [Proair HFA] 2 puff INH Q4HR PRN 02/07/15 [History] Fluticasone/Salmeterol [Advair 250-50] 1 puff INH BID PRN 02/07/15 [History] Meloxicam [Mobic] 15 mg PO DAILY 02/07/15 [History] Simvastatin [Zocor] 10 mg PO BEDTIME 02/07/15 [History] Divalproex Sodium [Depakote] 1,500 mg PO BEDTIME 09/12/16 [History] Lisdexamfetamine Dimesylate [Vyvanse] 70 mg PO DAILY 02/07/19 [History] EPINEPHrine [Epipen 2-Maynor] 0.3 mg IJ ASDIRECTED #1 auto.injct 07/30/20 [Rx] Famotidine [Pepcid AC] 10 mg PO DAILY 10 Days #10 tablet 07/30/20 [Rx] Past Medical History Cardiovascular History: Reports: High Cholesterol Respiratory History: Reports: Asthma Other Gastrointestinal History: inguinal hernia bilateral Other Musculoskeletal History: bulging discs Psychiatric History: Reports: ADHD, Bipolar Dermatologic History: Reports: Other (See Below) Other Dermatologic History: adult acne - Infectious Disease History Infectious Disease History: Reports: Chicken Pox - Past Surgical History Other HEENT Surgeries/Procedures: eye surgery as a child Other Respiratory Surgeries/Procedures: chest tubes in past Social & Family History - Family History Family Medical History: No Pertinent Family History - Tobacco Use Tobacco Use Status *Q: Never Tobacco User Second Hand Smoke Exposure: No - Caffeine Use Caffeine Use: Reports: Energy Drinks - Recreational Drug Use Recreational Drug Use: No H&P Review of Systems - Review of Systems: Review Of Systems: See Below General: Reports: No Symptoms HEENT: Reports: No Symptoms Pulmonary: Reports: No Symptoms Cardiovascular: Reports: No Symptoms Gastrointestinal: Reports: No Symptoms Musculoskeletal: Reports: No Symptoms Skin: Reports: No Symptoms Psychiatric: Reports: No Symptoms Neurological: Reports: No Symptoms Immunologic: Denies: Anaphylaxis Exam - Exam Exam: See Below - Vital Signs Vital Signs: Last Vital Signs Temp 96.9 F 07/30/20 07:30 Pulse 89 07/30/20 07:30 Resp 16 07/30/20 07:30 BP 133/84 07/30/20 07:30 Pulse Ox 93 L 07/30/20 07:30 Weight: 111.402 kg - Exam Quality Assessment: No: Supplemental Oxygen General: Alert, Oriented, Cooperative HEENT: EOMI, Mucosa Moist & Froid, Posterior Pharynx Clear, Other (airway petent ) Neck: Supple, Trachea Midline Lungs: Clear to Auscultation, Normal Respiratory Effort Cardiovascular: Regular Rate, Regular Rhythm GI/Abdominal Exam: Normal Bowel Sounds, Soft, Non-Tender Extremities: Normal Inspection Neuro Extensive - Mental Status: Alert, Oriented x3, Normal Mood/Affect Neuro Extensive - Motor, Sensory, Reflexes: CN II-XII Intact - Patient Data Lab Results Last 24 hrs: Laboratory Results - last 24 hr 07/29/20 07/29/20 07/29/20 Range/Units 23:00 23:00 23:14 WBC 11.46 H (4.0-11.0) K/uL RBC 5.95 H (4.50-5.90) M/uL Hgb 18.2 H (13.0-17.0) g/dL Hct 55.1 H (38.0-50.0) % MCV 92.6 (80.0-98.0) fL MCH 30.6 (27.0-32.0) pg MCHC 33.0 (31.0-37.0) g/dL RDW Std Deviation 44.0 (28.0-62.0) fl RDW Coeff of Jess 13 (11.0-15.0) % Plt Count 309 (150-400) K/uL MPV 10.60 (7.40-12.00) fL Neut % (Auto) 88.2 H (48.0-80.0) % Lymph % (Auto) 10.5 L (16.0-40.0) % Mchenry % (Auto) 1.1 (0.0-15.0) % Eos % (Auto) 0.2 (0.0-7.0) % Baso % (Auto) 0.0 (0.0-1.5) % Neut # (Auto) 10.1 H (1.4-5.7) K/uL Lymph # (Auto) 1.2 (0.6-2.4) K/uL Mchenry # (Auto) 0.1 (0.0-0.8) K/uL Eos # (Auto) 0.0 (0.0-0.7) K/uL Baso # (Auto) 0.0 (0.0-0.1) K/uL Nucleated RBC % 0.0 /100WBC Nucleated RBCs # 0 K/uL Sodium 141 (136-148) mmol/L Potassium 4.1 (3.5-5.1) mmol/L Chloride 104 (98-107) mmol/L Carbon Dioxide 26.8 (21.0-32.0) mmol/L BUN 16 (7.0-18.0) mg/dL Creatinine 1.5 H (0.8-1.3) mg/dL Est Cr Clr Drug Dosing 67.54 mL/min Estimated GFR (MDRD) 50.4 ml/min Glucose 183 H (74-106) mg/dL POC Glucose 94 (60-110) mg/dL Calcium 9.4 (8.5-10.1) mg/dL SARS-CoV-2 RNA (LENCHO) (NEGATIVE) 07/29/20 07/30/20 07/30/20 Range/Units 23:34 06:35 06:35 WBC 7.94 (4.0-11.0) K/uL RBC 5.20 (4.50-5.90) M/uL Hgb 15.5 (13.0-17.0) g/dL Hct 48.6 (38.0-50.0) % MCV 93.5 (80.0-98.0) fL MCH 29.8 (27.0-32.0) pg MCHC 31.9 (31.0-37.0) g/dL RDW Std Deviation 44.6 (28.0-62.0) fl RDW Coeff of Jess 13 (11.0-15.0) % Plt Count 246 (150-400) K/uL MPV 10.40 (7.40-12.00) fL Neut % (Auto) 96.0 H (48.0-80.0) % Lymph % (Auto) 2.9 L (16.0-40.0) % Mchenry % (Auto) 0.8 (0.0-15.0) % Eos % (Auto) 0.3 (0.0-7.0) % Baso % (Auto) 0.0 (0.0-1.5) % Neut # (Auto) 7.6 H (1.4-5.7) K/uL Lymph # (Auto) 0.2 L (0.6-2.4) K/uL Mchenry # (Auto) 0.1 (0.0-0.8) K/uL Eos # (Auto) 0.0 (0.0-0.7) K/uL Baso # (Auto) 0.0 (0.0-0.1) K/uL Nucleated RBC % 0.0 /100WBC Nucleated RBCs # 0 K/uL Sodium 140 (136-148) mmol/L Potassium 5.5 H (3.5-5.1) mmol/L Chloride 108 H (98-107) mmol/L Carbon Dioxide 24.9 (21.0-32.0) mmol/L BUN 14 (7.0-18.0) mg/dL Creatinine 1.1 (0.8-1.3) mg/dL Est Cr Clr Drug Dosing 92.10 mL/min Estimated GFR (MDRD) > 60.0 ml/min Glucose 140 H (74-106) mg/dL POC Glucose (60-110) mg/dL Calcium 9.2 (8.5-10.1) mg/dL SARS-CoV-2 RNA (LENCHO) NEGATIVE (NEGATIVE) Result Diagrams: 07/30/20 06:35 07/30/20 06:35 Sepsis Event Note - Evaluation Sepsis Screening Result: No Definite Risk - Focused Exam Vital Signs: Vital Signs Temp Pulse Resp BP Pulse Ox 07/30/20 07:30 96.9 F 89 16 133/84 93 L 07/30/20 04:41 96.9 F 78 18 120/72 98 07/30/20 01:54 98.6 F 100 19 161/91 H 94 L 07/30/20 01:40 92 16 124/84 94 L 07/30/20 00:32 85 16 123/72 98 07/29/20 23:27 87 18 132/87 98 07/29/20 22:50 96.2 F L 141 H 22 H 89/50 L 91 L - Problem List (1) Anaphylaxis SNOMED Code(s): 88324247 ICD Code: T78.2XXA - ANAPHYLACTIC SHOCK, UNSPECIFIED, INITIAL ENCOUNTER Status: Acute Current Visit: Yes Qualifiers: Encounter type: initial encounter Qualified Code(s): T78.2XXA - Anaphylactic shock, unspecified, initial encounter Problem List Initiated/Reviewed/Updated: Yes Orders Last 24hrs: Active Orders 24 hr Category Date Time Status Admission Status [Patient Status] [ADT] Stat ADT 07/30/20 00:51 Active Cardiac Monitoring [RC] . DIRECTED Care 07/29/20 22:48 Active EKG Documentation Completion [RC] STAT Care 07/29/20 22:49 Active Pulse Oximetry [RC] ASDIRECTED Care 07/29/20 22:48 Active RT Aerosol Therapy [RC] ASDIRECTED Care 07/29/20 23:21 Active Telemetry Monitoring [Cardiac Monitoring] [RC] Q8H Care 07/30/20 01:41 Active Vital Signs [RC] Q4H Care 07/30/20 01:40 Active Regular Diet [DIET] Diet 07/30/20 Breakfast Active EPINEPHrine [Adrenalin] 10 mg Med 07/30/20 00:15 Active Dextrose 5% in Water 90 ml IV TITRATE Sodium Chloride 0.9% [Normal Saline] 1,000 ml Med 07/29/20 23:00 Active IV ASDIRECTED Sodium Chloride 0.9% [Normal Saline] 1,000 ml Med 07/29/20 23:30 Active IV ASDIRECTED Medication Orders Sodium Chloride (Normal Saline) 1,000 mls @ 999 mls/hr IV ASDIRECTED KRISS Last Admin: 07/29/20 23:26 Dose: 999 mls/hr Documented by: AVINASHMAC Sodium Chloride (Normal Saline) 1,000 mls @ 3,000 mls/hr IV ASDIRECTED KRISS Last Admin: 07/29/20 23:05 Dose: 3,000 mls/hr Documented by: DALILA Epinephrine HCl 10 mg/ (Dextrose/Water) 100 mls @ 6.532 mls/hr IV TITRATE KRISS; Protocol Assessment/Plan Comment:: Assessment: 1. Acute anaphylactic reaction to kiwi 2. Past medical history of bipolar disorder ADHD Plan Admit to observation. Full code. I's and O's per 10 vitals per routine. 1. Patient was admitted to observation secondary to concerns about biphasic reaction. Patient was seen in the ED around 8 PM after receiving 2 doses of IM epinephrine with good response. Has not had any significant symptoms since then and is doing well. Patient at bedside is feeling well without any significant distress and and or symptoms. Patient is requesting discharge. Discussed with patient significance of requiring at home EpiPen with him at all times in his domicile and in his car. We'll send patient home with p.o. famotidine and rx for epi-pen 2-pack; we'll also set up a follow-up primary care in the following week. Discussed with patient that after 72 hours risk of biphasic reaction reduced significantly but should still have an EpiPen and some Benadryl with him at all times. Advised to follow up with his PCP for possible outpatinet mortarman referral and to avoid any other possible triggers. Advised to also add-on a daily zyrtec until seen by mortarman. Patient was discharged in stable condition. pt. vitals stable. airway open and patent. rash resolved and pt in no acute distress disposition : home Condition : stable
[2020-07-30 12:17] VITALS: BP 123/82; PULSE 90
== END 2020-07-30 12:20 | disposition home or self-care (01) ==
LOC: MW.ED 22:43 → MW.MS 07-30 00:51
PROVIDERS: ADMIT Internal Medicine; ATTEND Internal Medicine
DX: T78.2XXA Anaphylactic shock, unspecified, initial encounter (principal); Z91.018 Allergy to other foods; Z79.899 Other long term (current) drug therapy; Z20.822 Contact with and (suspected) exposure to COVID-19
CPT/HCPCS: 36415; 80048; 82962; 85025; 87635; 93005; 96372; 96374; 96375; 99284; G0378; J0171; J2310; J2405; J2930; J3490; J7030; 99291; J7620-GY; U0002

== ENCOUNTER 2021-05-07 13:52 | Emergency (ER) | payer BC ==
--- NOTE | 2021-05-07 14:51 | EDM.PDOC ---
ED HPI GENERAL MEDICAL PROBLEM - General Chief Complaint: Lower Extremity Injury/Pain Stated Complaint: POSS BLOOD CLOT IN R LEG Time Seen by Provider: 05/07/21 14:39 - History of Present Illness INITIAL COMMENTS - FREE TEXT/NARRATIVE: History of present illness: [] Patient developed swelling in the right lower extremity yesterday. There is a little bit of discomfort. There is a feeling of tightness in his leg. Symptoms are constant and gradually progressive. There is no other symptoms. Patient had a 6-hour trip and his vehicle 2 nights ago. He has no other risk for thromboembolic disease. He has never had any bleeding in his head or his GI tract. He has no contraindication to anticoagulants. Review of systems: As per history of present illness and below otherwise all systems reviewed and negative. Past medical history: As per history of present illness and as reviewed below otherwise noncontributory. Surgical history: As per history of present illness and as reviewed below otherwise noncontributory. Social history: No reported history of drug or alcohol abuse. Family history: As per history of present illness and as reviewed below otherwise noncontributory. Physical exam: Constitutional - well developed, well-nourished and in no acute distress HEENT - normocephalic, no evidence of trauma - external nose and mouth normal - no mass in neck and no JVD - mucosae moist EYES - full EOM, PERRL, no icterus - no evidence of inflammation, injection, or drainage Respiratory - no respiratory distress, equal bilateral expansion Musculoskeletal no gross deformity of long bones or joints -swelling below the knee of the right lower extremity without warmth or drainage. Neurologic - Alert and oriented times four - CN II-XII grossly intact - motor sensory and coordination symmetrically normal Psychiatric - appropriate mood and affect with normal thought content Hematologic - No petechiae or purpura - mucosa appropriate color and sclera not pale - normal nail bed color and refill Integument - no rash or evidence of trauma - normal turgor Diagnostics: [] Therapeutics: [] Impression: [] Plan: [] Definitive disposition and diagnosis as appropriate pending reevaluation and review of above. Right Leg Pain Score (Numeric/FACES): 5 - Related Data Allergies Allergy/AdvReac Type Severity Reaction Status Date / Time kiwi Allergy Severe Anaphylactic Verified 05/07/21 14:39 Shock cat dander Allergy Itching Verified 05/07/21 14:39 Home Meds: Home Meds Albuterol [Proair HFA] 2 puff INH Q4HR PRN 02/07/15 [History] Divalproex Sodium [Depakote] 1,500 mg PO BEDTIME 09/12/16 [History] Lisdexamfetamine Dimesylate [Vyvanse] 70 mg PO DAILY 02/07/19 [History] EPINEPHrine [Epipen 2-Maynor] 0.3 mg IJ ASDIRECTED #1 auto.injct 07/30/20 [Rx] Apixaban [Eliquis] 5 mg PO BID #194 tablet 05/07/21 [Rx] Past Medical History Cardiovascular History: Reports: High Cholesterol Respiratory History: Reports: Asthma Other Gastrointestinal History: inguinal hernia bilateral Other Musculoskeletal History: bulging discs Psychiatric History: Reports: ADHD, Bipolar Dermatologic History: Reports: Other (See Below) Other Dermatologic History: adult acne - Infectious Disease History Infectious Disease History: Reports: Chicken Pox - Past Surgical History Other HEENT Surgeries/Procedures: eye surgery as a child Other Respiratory Surgeries/Procedures: chest tubes in past Social & Family History - Family History Family Medical History: No Pertinent Family History - Caffeine Use Caffeine Use: Reports: Energy Drinks Review of Systems - Review of Systems Review Of Systems: Comprehensive ROS is negative, except as noted in HPI. ED EXAM, GENERAL - Physical Exam Exam: See Below Free Text/Narrative:: my physical exam is in the HPI Course - Vital Signs Last Recorded V/S: Last Vital Signs Temp 36.7 C 05/07/21 15:36 Pulse 83 05/07/21 15:36 Resp 16 05/07/21 14:42 BP 122/84 05/07/21 15:36 Pulse Ox 98 05/07/21 15:36 - Orders/Labs/Meds Orders: Active Orders 24 hr Category Date Time Status Venous Doppler Lwr Ext Rt [US] Stat Exams 05/07/21 14:49 Taken Departure - Departure Time of Disposition: 16:33 Disposition: Home, Self-Care 01 Condition: Good Clinical Impression: DVT of lower extremity (deep venous thrombosis) - Discharge Information Prescriptions: Apixaban [Eliquis] 5 mg PO BID #194 tablet Instructions: Deep Vein Thrombosis Referrals: Marcos Cobos MD [Primary Care Provider] - Forms: ED Department Discharge Additional Instructions: Make appointment primary for follow-up. Return if bleeding or black stools. [facility] - Primary Care [address] [place] [address] [facility] [address] [place] [address] The following information is given to patients seen in the emergency department who are being discharged to home. This information is to outline your options for follow-up care. We provide all patients seen in our emergency department with a follow-up referral. The need for follow-up, as well as the timing and circumstances, are variable depending upon the specifics of your emergency department visit. If you don't have a primary care physician on staff, we will provide you with a referral. We always advise you to contact your personal physician following an emergency department visit to inform them of the circumstance of the visit and for follow-up with them and/or the need for any referrals to a consulting sp ecialist. The emergency department will also refer you to a specialist when appropriate. This referral assures that you have the opportunity for follow-up care with a specialist. All of these measure are taken in an effort to provide you with optimal care, which includes your follow-up. Under all circumstances we always encourage you to contact your private physician who remains a resource for coordinating your care. When calling for follow-up care, please make the office aware that this follow-up is from your recent emergency room visit. If for any reason you are refused follow-up, please contact the [facility] Emergency Department at and asked to speak to the emergency department charge nurse. Sepsis Event Note (ED) - Evaluation Sepsis Screening Result: No Definite Risk - Focused Exam Vital Signs: Vital Signs Temp Pulse Resp BP Pulse Ox 05/07/21 15:36 36.7 C 83 122/84 98 05/07/21 14:42 37.0 C 83 16 132/84 95 - My Orders Last 24 Hours: My Active Orders 05/07/21 14:49 Venous Doppler Lwr Ext Rt [US] Stat - Assessment/Plan Last 24 Hours: My Active Orders 05/07/21 14:49 Venous Doppler Lwr Ext Rt [US] Stat
[2021-05-07 16:39] VITALS: BP 119/78; PULSE 80
--- NOTE | 2021-05-07 17:14 | US ---
INDICATION: Right lower leg swelling COMPARISON: None. TECHNIQUE: A compression venous ultrasound exam was performed of the right lower extremity using epperson-scale imaging, color Doppler and spectral Doppler analysis. FINDINGS: Sonographic imaging of the right lower extremity demonstrates thrombus extending from the mid posterior tibial vein to the very distal superficial femoral vein. The mid superficial vein to the common femoral vein demonstrate normal color flow and compressibility. The anterior tibial vein is patent. The peroneal vein is not identified. IMPRESSION: Thrombus identified extending from the mid posterior tibial vein through the distal superficial femoral vein. These findings were discussed with Dr. Barone at 1712 hours. Dictated by Harini Perez MD @ 05/07/2021 5:12:18 PM (Electronically Signed)
== END 2021-05-07 16:46 | disposition home or self-care (01) ==
LOC: MW.ED 13:52
DX: I82.441 Acute embolism and thrombosis of right tibial vein (principal); I82.411 Acute embolism and thrombosis of right femoral vein; I82.4Z1 Acute embolism and thrombosis of unspecified deep veins of right distal lower extremity; J45.909 Unspecified asthma, uncomplicated; Z91.048 Other nonmedicinal substance allergy status; Z91.018 Allergy to other foods; Z79.01 Long term (current) use of anticoagulants; Z79.899 Other long term (current) drug therapy
CPT/HCPCS: 93971-26-RT; 93971-RT; 99283-25

== ENCOUNTER 2024-02-24 12:45 | Emergency (ER) | payer BC ==
[2024-02-24 13:47] VITALS: BP 116/72; PULSE 80
== END 2024-02-24 13:47 | disposition home or self-care (01) ==
LOC: MW.ED 12:45
DX: L03.115 Cellulitis of right lower limb (principal); K21.9 Gastro-esophageal reflux disease without esophagitis; Z79.899 Other long term (current) drug therapy; Z91.018 Allergy to other foods; Z91.048 Other nonmedicinal substance allergy status; Z75.8 Other problems related to medical facilities and other health care
CPT/HCPCS: 99283

== ENCOUNTER 2024-07-16 06:50 | Day surgery (SDC) | payer BC ==
[~2024-07-16 06:50] MED LIST: Acetaminophen 1,000 MG in Premix Bag 1 BAG IV SCH; cefOXitin 2 GM in Sodium Chloride 0.9% 50 ML IV SCH
[2024-07-16] MEDS ORDERED: Propofol 200 MG/20 ML SDV ONE (07:19)
[2024-07-16] MEDS ORDERED: dexmedeTOMIDine HCl 200 MCG/2 ML SDV ONE (07:20)
[2024-07-16] MEDS ORDERED: Sodium Chloride 0.9% 20 ML ONE (07:20)
[2024-07-16] MEDS ORDERED: Rocuronium Bromide 50 MG/5 ML Syringe ONE ×2 (07:20→08:41)
[2024-07-16] MEDS ORDERED: fentaNYL 100 MCG/2 ML SDV ONE (07:20)
[2024-07-16] MEDS ORDERED: Bupivacaine 0.5% 30 ML SDV ONE (07:21)
[2024-07-16] MEDS ORDERED: Bupivacaine 0.25% 30 ML SDV ONE (07:25)
[2024-07-16] MEDS: Pregabalin 75 MG Cap PO SCH (07:36)
[2024-07-16] MEDS: Lactated Ringers 1,000 ML IV SCH (07:36)
[2024-07-16] MEDS ORDERED: Dexamethasone 4 MG/ML 5 ML MDV ONE (08:18)
[2024-07-16] MEDS ORDERED: ePHEDrine 50 MG/ML SDV ONE (08:18)
[2024-07-16] MEDS ORDERED: Phenylephrine HCl In 0.9% NaCl 1 MG/10 ML Syringe IVPUSH PRN (08:19)
[2024-07-16] MEDS ORDERED: fentaNYL 50 MCG/ML SDV IVPUSH PRN (08:19)
[2024-07-16] MEDS ORDERED: Albuterol 0.083% 2.5 MG/3 ML Neb Soln NEB PRN (08:19)
[2024-07-16] MEDS ORDERED: Naloxone 0.4 MG/ML SDV IVPUSH PRN (08:19)
[2024-07-16] MEDS ORDERED: Morphine 2 MG/ML SYRINGE IVPUSH PRN (08:19)
[2024-07-16] MEDS ORDERED: HYDROmorphone 1 MG/ML Syringe IVPUSH PRN (08:19)
[2024-07-16] MEDS ORDERED: Ondansetron 4 MG/2 ML SDV IVPUSH PRN (08:19)
[2024-07-16] MEDS ORDERED: Metoclopramide 10 MG/2 ML SDV IVPUSH PRN (08:19)
[2024-07-16] MEDS ORDERED: HYDROmorphone 1 MG/ML Syringe ONE (08:56)
[2024-07-16] MEDS ORDERED: Ketorolac 30 MG/ML SDV ONE (09:47)
[2024-07-16] MEDS ORDERED: Sugammadex Sodium 200 MG/2 ML VIAL IV ONE (09:47)
[2024-07-16 12:18] VITALS: BP 108/71; PULSE 62
== END 2024-07-16 12:15 | disposition home or self-care (01) ==
LOC: MW.SDS 06:50
PROVIDERS: ATTEND Surgery
DX: K40.21 Bilateral inguinal hernia, without obstruction or gangrene, recurrent (principal); D17.6 Benign lipomatous neoplasm of spermatic cord; K42.9 Umbilical hernia without obstruction or gangrene; J45.20 Mild intermittent asthma, uncomplicated; F31.10 Bipolar disorder, current episode manic without psychotic features, unspecified; K21.9 Gastro-esophageal reflux disease without esophagitis; E78.1 Pure hyperglyceridemia; Z79.899 Other long term (current) drug therapy
CPT/HCPCS: 49651; 64488; A9270; C1781; J0131; J0665; J1100; J1171; J1885; J2704; J3010; J7120; 00840; J3490

== ENCOUNTER 2024-08-04 02:07 | Inpatient (IN) | payer BC ==
[2024-08-04 02:35] LABS: BASOPHILS ABSOLUTE AUTO 0.03 K/uL (0.00-0.20); BASOPHILS PERCENT AUTO 0.4 % (0.0-1.0); EOSINOPHILS ABSOLUTE AUTO 0.17 K/uL (0.00-0.45); EOSINOPHILS PERCENT AUTO 2.1 % (0.0-6.0); HEMATOCRIT 37.8 % (42.0-52.0); HEMOGLOBIN 13.2 g/dL (14.0-18.0); IMMATURE GRAN ABSOLUTE AUTO 0.01 K/uL (0.00-0.05); IMMATURE GRAN PERCENT AUTO 0.1 % (0.0-0.4); LYMPHOCYTES ABSOLUTE AUTO 0.65 K/uL (1.00-4.80); LYMPHOCYTES PERCENT AUTO 8.1 % (24.0-44.0); MEAN CORPUSCULAR HEMOGLOBIN 29.9 pg (28.0-32.0); MEAN CORPUSCULAR HGB CONC 34.9 g/dL (32.0-36.0); MEAN CORPUSCULAR VOLUME 85.5 fL (83.0-99.0); MEAN PLATELET VOLUME 9.2 fL (9.4-12.4); MONOCYTES ABSOLUTE AUTO 0.97 K/uL (0.00-0.80); MONOCYTES PERCENT AUTO 12.1 % (0.0-8.0); NEUTROPHILS ABSOLUTE AUTO 6.17 K/uL (1.80-7.70); NEUTROPHILS PERCENT AUTO 77.2 % (41.0-71.0); PLATELET COUNT,PLT 287 K/uL (150-400); RED BLOOD CELL COUNT 4.42 M/uL (4.52-5.90)
[2024-08-04] MEDS: Morphine 4 MG/ML Syringe IVPUSH ONE ×2 (02:37→04:56)
[2024-08-04] MEDS: Ondansetron 4 MG/2 ML SDV IVPUSH ONE (02:37)
[2024-08-04] MEDS: Sodium Chloride 0.9% 2.5 ML Syringe FLUSH PRN (02:38)
[2024-08-04] MEDS: Sodium Chloride 0.9% 10 ML Syringe FLUSH PRN (02:38)
[2024-08-04 02:51] LABS: APPEARANCE,URINE CLEAR; BILIRUBIN,URINE NEGATIVE (NEGATIVE); COLOR,URINE YELLOW; GLUCOSE,URINE NEGATIVE (NEGATIVE); KETONES,URINE NEGATIVE (NEGATIVE); LEUKOCYTE ESTERASE,URINE NEGATIVE (NEGATIVE); NITRITE,URINE NEGATIVE (NEGATIVE); OCCULT BLOOD,URINE NEGATIVE (NEGATIVE); PROTEIN,URINE NEGATIVE (NEGATIVE); UROBILINOGEN,URINE 0.2 EU/dL (<2.0)
[2024-08-04] MEDS: Iopamidol 755 MG/ML 500 ML Multipack Bottle IVPUSH ONE (03:12)
[2024-08-04 03:14] LABS: A/G RATIO 1.1 (0.9-1.6); ALANINE AMINOTRANSFERASE,ALT 28 IU/L (14-63); ALBUMIN 3.4 g/dL (3.4-5.0); ALKALINE PHOSPHATASE 85 U/L (46-116); ASPARTATE AMNIOTRANSFERASE,AST 14 IU/L (15-37); BILIRUBIN TOTAL 0.7 mg/dL (0.2-1.0); BLOOD UREA NITROGEN,BUN 15 mg/dL (7.0-18.0); CARBON DIOXIDE,CO2 24.7 mmol/L (21.0-32.0); CHLORIDE,CL 97 mmol/L (98-107); CREATININE 1.2 mg/dL (0.8-1.3); GLUCOSE RANDOM 114 mg/dL (74-106); LIPASE 22 U/L (16-77); PROTEIN TOTAL,TP 6.5 g/dL (6.4-8.2); SODIUM,NA 134 mmol/L (136-148)
[2024-08-04 03:17] LABS: ESTIMATED GFR 74 mL/min (>60)
[2024-08-04] MEDS: Sodium Chloride 0.9% 1,000 ML IV ONE (04:57)
[2024-08-04] MEDS ORDERED: Sodium Chloride 0.9% 2.5 ML Syringe FLUSH PRN (08:38)
[2024-08-04] MEDS ORDERED: Sodium Chloride 0.9% 10 ML Syringe FLUSH PRN (08:38)
[2024-08-04] MEDS ORDERED: Naloxone 0.4 MG/ML SDV IVPUSH PRN (08:38)
[2024-08-04] MEDS ORDERED: Ondansetron 4 MG/2 ML SDV IVPUSH PRN (08:38)
[2024-08-04] MEDS ORDERED: Phenol 1.4% Oral Spray 177 ML Bottle MUCMEM PRN (08:41)
[2024-08-04] MEDS: Morphine 2 MG/ML SYRINGE IVPUSH PRN (09:05)
[2024-08-04] MEDS: Pantoprazole 40 MG in Sodium Chloride 0.9% 10 ML IVPUSH SCH (09:05)
[2024-08-04] MEDS: Enoxaparin 40 MG/0.4 ML Syringe SUBCUT SCH (11:38)
[2024-08-04] MEDS: Sodium Chloride 0.9% 1,000 ML IV SCH (17:40)
[2024-08-05 06:18] LABS: BASOPHILS ABSOLUTE AUTO 0.03 K/uL (0.00-0.20); BASOPHILS PERCENT AUTO 0.9 % (0.0-1.0); EOSINOPHILS ABSOLUTE AUTO 0.21 K/uL (0.00-0.45); EOSINOPHILS PERCENT AUTO 6.3 % (0.0-6.0); HEMATOCRIT 34.7 % (42.0-52.0); LYMPHOCYTES ABSOLUTE AUTO 0.94 K/uL (1.00-4.80); LYMPHOCYTES PERCENT AUTO 28.4 % (24.0-44.0); MEAN CORPUSCULAR HGB CONC 34.6 g/dL (32.0-36.0); MEAN CORPUSCULAR VOLUME 86.8 fL (83.0-99.0); MEAN PLATELET VOLUME 9.5 fL (9.4-12.4); MONOCYTES ABSOLUTE AUTO 0.42 K/uL (0.00-0.80); MONOCYTES PERCENT AUTO 12.7 % (0.0-8.0); NEUTROPHILS ABSOLUTE AUTO 1.71 K/uL (1.80-7.70); NEUTROPHILS PERCENT AUTO 51.7 % (41.0-71.0); PLATELET COUNT,PLT 223 K/uL (150-400); WHITE BLOOD CELL COUNT,WBC 3.31 K/uL (3.9-11.3)
[2024-08-05 06:37] LABS: CALCIUM 8.9 mg/dL (8.5-10.1); MAGNESIUM 1.7 mg/dL (1.8-2.4); POTASSIUM,K 4.1 mmol/L (3.5-5.1)
[2024-08-05] MEDS ORDERED: Albuterol 8 GM Inhaler INH PRN (09:11)
[2024-08-05] MEDS: Ibuprofen 600 MG Tab PO SCH (09:46)
[2024-08-05] MEDS: Formoterol/Mometasone 200-5 MCG 8.8 GM Inhaler INH SCH (14:37)
[2024-08-06 07:27] VITALS: BP 145/91; PULSE 81
[2024-08-06] MEDS ORDERED: Non-Formulary Medication 1 Each (Fluticasone/Vilanterol [Breo Ellipta 50-25 Mcg Inhaler] 1 IH SCH (09:00)
== END 2024-08-06 12:20 | disposition home or self-care (01) | DRG 247 ==
LOC: MW.ED 02:07 → MW.MS 06:34
PROVIDERS: ADMIT Family Medicine; ATTEND Family Medicine
DX: K56.600 Partial intestinal obstruction, unspecified as to cause (principal); R18.8 Other ascites; I82.501 Chronic embolism and thrombosis of unspecified deep veins of right lower extremity; F90.9 Attention-deficit hyperactivity disorder, unspecified type; J45.909 Unspecified asthma, uncomplicated; K21.9 Gastro-esophageal reflux disease without esophagitis; F31.9 Bipolar disorder, unspecified; Z90.89 Acquired absence of other organs; Z98.890 Other specified postprocedural states; Z79.51 Long term (current) use of inhaled steroids; Z79.2 Long term (current) use of antibiotics; Z79.899 Other long term (current) drug therapy; Z79.01 Long term (current) use of anticoagulants
CPT/HCPCS: 36415; 74018; 74018-26; 74177; 74177-26; 80048; 80053; 81003; 82947; 83690; 83735; 85025; 96361; 96374; 96375; 96376; 99284; 99285-25; A9270-GY; J1650; J2270; J2405; J2470; J3490; J7030; Q9967